=== PATIENT | female | born 1955 | race Two or more races ===

== ENCOUNTER 2025-01-12 08:46 | Outpatient (AMB) | payer MEDICARE, MEDICAID, SELFPAY ==
--- NOTE | 2025-01-12 09:13 | ORTHONT_ITS ---
Vital signs 01/12/25 09:14 Height 1.45 m Height Method Stated Weight 72.291 kg Weight Measurement Method Standing Scale BMI 34.4 BP 163/95 H Blood Pressure Source Automatic Cuff Blood Pressure Location Left Upper Arm Position Sitting Respiration 19 Pulse 77 Pulse Source Monitor Temp 96.8 F Temp Source Temporal Artery Scan Pulse Oximetry (%) 97 Oxygen Delivery Method Room Air Med/Allergies Allergies & Medications Allergies No Known Allergies Allergy (Verified 01/12/25 09:14) Medication Reconciliation celecoxib 200 mg capsule 200 mg PO QDAY 01/12/25 [History Confirmed 01/12/25] hydroxychloroquine 200 mg tablet 200 mg PO QDAY 01/12/25 [History Confirmed 01/12/25] meloxicam 7.5 mg tablet 7.5 mg PO QDAY #45 tabs 01/12/25 [Rx] Exam Exam Patient is in no acute distress and is cooperative with the examination today. Breathing is nonlabored. In no respiratory distress. Bilateral extremities were evaluated and demonstrates sensation intact to light touch. Palpable pedal pulses are present. No significant edema is present. Bilateral hips were examined. The patient has no pain with log roll of the hips. Internal rotation to 30 degrees and external rotation to 30 degrees is painless. Negative FADIR. The left knee was examined. The left knee is in varus alignment. Range of motion from 0-115 degrees. Knee is stable to varus and valgus as well as AP translation with <5mm. Patient has a negative McMurrays. There is no pain with patellofemoral compression and no crepitus noted. The knee is tender to palpation medially. The right knee was also examined. The right knee is in varus alignment. Range of motion from 0-120 degrees. Knee is stable to varus and valgus as well as AP translation with <5mm. Patient has a negative McMurrays. There is no pain with patellofemoral compression and no crepitus noted. The knee is tender to palpation medially. X-rays demonstrate varus deformity. X-rays are from [facility] and are nonweightbearing. Will get new x-rays Assessment and Plan Problem List (1) Degenerative arthritis of knee, bilateral: Status: Acute Plan: Patient is a 70-year-old female With bilateral knee pain and bilateral knee arthritis. We discussed nonoperative and operative options. We will start with getting new weightbearing x-rays. She would like to try different anti- inflammatory and we will do bilateral knee injections today. We discussed the natural history of arthritis in great detail today Recommend knee cortisone injections as patient would like to proceed with conservative treatment at this time. The risks and benefits of the procedure were reviewed with the patient and patient gave verbal consent to continue with the procedure. Procedure: performed by Dr. Diez Using sterile technique the Bilateral knees were thoroughly prepped with alcohol, and approximately 1 cc of Kenalog 40 mg/mL and 4 cc of 1% lidocaine was injected into each knee without resistance into the medial tibial femoral joint space. The patient tolerated the procedure. Advanced Care Planning Discussion Advance care planning discussed with:: patient and child Office Procedures GNS Level of Care Nursing/Assessment Patient Status: Initial/New Patient Nursing Assessment/Reassesment: Medication Reconciliation, Update PMH in EMR and Vital Signs Coordination of Care: Complex Care and Chronic Disease 1-5, Education Complex Pt/Fam, Consent,records obtained, informed consent, 1 Ins Authorization, Lab and Imaging orders, Results/Orders obtained and Staff clarify orders New Patient Charge New Patient Point Assignment: 1124 New Patient Point Charge: WAREHOUSING TECHNICIAN Level 4 ([id number]) Surgical Proc/IM SQ injection Major Surgical Procedure: Yes (BILATERAL KNEE INJECTION) Medication Given Medication Given Medication Given: Yes Documented Dose Given: 8 Route: Infiitration Medication Given Medication Given Medication Given: Yes Documented Dose Given: 2 Route: Infiitration Office Meds Xylocaine 10 mg/mL (1 %) injection solution Performing Provider: James Diez MD Performing Location: [facility] Administered by: James Diez MD on 01/12/25 09:34 Dose Route Admin Location Dispensed Lot Number Expiration Date [facility] Mulling Machine Operator 40 mL Infiltration 40 mL [id number] 04/23/28 89499-681-56 [facility] triamcinolone acetonide 40 mg/mL suspension for injection Performing Provider: James Diez MD Performing Location: [facility] Administered by: James Diez MD on 01/12/25 09:34 Dose Route Admin Location Dispensed Lot Number Expiration Date [facility] [employer] Machine Operator 80 mg Infiltration 2 mL [id number] 08/23/26 4846-8656-88 [employer] [place] Intake Visit Data Collection New Patient or Established: New Patient (never been to [facility]) Reason for Visit:: LEFT KNEE PAIN Seen by Clinical Staff ONLY (RN/MA): No Air Operations Manager Required: Yes PCP or OBGYN visit in last 3 months: Yes Hx Now: No Do You Feel Safe at Home: Yes Authorities Contacted: N/A Questionairres Past Medical History Past Medical History Have you ever been diagnosed with any of the following: Respiratory Problems Smoking: No Smoking Exposure: No Subjective Visit Visit for: new patient and knee (LEFT) Immunization / Flu Flu Vaccine in the Last 12 Months: Yes Flu Vaccine Exclusion Criteria: Already Received History of Present Illness Chief complaint: Bilateral knee pain Date of injury / onset of symptoms: 10/2023 Shweta is a pleasant 70-year-old female with bilateral knee pain and bilateral knee arthritis. The pain has been ongoing for quite a while. She reports the left knee hurts More than the right. She has never had any injections in the past. She is on Celebrex and Tylenol. Pain Pain level (0-10): 10 Pain duration: WITH STANDING Pain location: anterior Pain quality: dull and aching Pain timing: night, increases with activity and stairs Associated signs & symptoms: weakness and stiffness Ambulatory data Ambulatory device: cane Treatments Number of previous injections: 0 Improvement with previous injections: No Number of Physical Therapy sessions: 0 Improvement with PT: No Improvement with NSAIDS: no Review of Systems Review of Systems: All systems negative unless otherwise noted in HPI.
[2025-01-12 09:14] VITALS: BP 163/95; PULSE 77; RESP 19; TEMP 36; O2SAT 97; BMI 34.4
--- NOTE | 2025-01-12 09:28 | XR_ITS ---
Examination: Bilateral knees AP single view Bilateral standing PA knees flexion 2 views Bilateral lateral knees standing 2 views Bilateral axial knees single view IMPRESSION: Bilateral AP knees standing single view Bilateral PA knees flexion standing 2 views Bilateral lateral knees standing 2 views Bilateral axial knees single view total 6 views Exam date and time: 13/11/2024 0951 hours INDICATIONS: Bilateral knee pain one year. FINDINGS: Prominent osteopenia Severe narrowing, [id number] medial joint spaces Advanced bilateral osteoarthritis patellofemoral joints IMPRESSION: Severe narrowing, [id number], medial joint spaces Bilateral advanced osteoarthritis patellofemoral joints
== END 2025-01-12 09:51 | disposition home or self-care (01) ==
PROVIDERS: PCP Family Medicine; Referring Provider Family Medicine; Supervising Provider Orthopaedic Surgery Adult Reconstructive Orthopaedic Surgery; Visit Provider Orthopaedic Surgery Adult Reconstructive Orthopaedic Surgery
DX: M17.0 Bilateral primary osteoarthritis of knee (principal)
CPT/HCPCS: 20610; 73564; 99204; J3301; J3490; G0463

== ENCOUNTER 2025-04-12 08:29 | Outpatient (AMB) | payer MEDICARE, MEDICAID, SELFPAY ==
[2025-04-12 08:48] VITALS: BP 177/98; PULSE 65; RESP 19; TEMP 36.6; O2SAT 96; BMI 34.1
--- NOTE | 2025-04-12 08:48 | ORTHONT_ITS ---
Vital signs 04/12/25 08:48 Height 1.45 m Height Method Stated Weight 71.781 kg Weight Measurement Method Standing Scale BMI 34.1 BP 177/98 H Blood Pressure Source Automatic Cuff Blood Pressure Location Left Upper Arm Position Sitting Respiration 19 Pulse 65 Pulse Source Monitor Temp 97.8 F Temp Source Temporal Artery Scan Pulse Oximetry (%) 96 Oxygen Delivery Method Room Air Med/Allergies Allergies & Medications Allergies No Known Allergies Allergy (Verified 04/12/25 08:48) Medication Reconciliation celecoxib 200 mg capsule 200 mg PO QDAY 01/12/25 [History Confirmed 04/12/25] hydroxychloroquine 200 mg tablet 200 mg PO QDAY 01/12/25 [History Confirmed 04/12/25] meloxicam 7.5 mg tablet 7.5 mg PO QDAY #45 tabs 01/12/25 [Rx Confirmed 04/12/25] Exam Exam Patient is in no acute distress and is cooperative with the examination today. Breathing is nonlabored. In no respiratory distress. Bilateral extremities were evaluated and demonstrates sensation intact to light touch. Palpable pedal pulses are present. No significant edema is present. Bilateral hips were examined. The patient has no pain with log roll of the hips. Internal rotation to 30 degrees and external rotation to 30 degrees is painless. Negative FADIR. The left knee was examined. The left knee is in varus alignment. Range of motion from 0-115 degrees. Knee is stable to varus and valgus as well as AP translation with <5mm. Patient has a negative McMurrays. There is no pain with patellofemoral compression and no crepitus noted. The knee is tender to palpation medially. The right knee was also examined. The right knee is in varus alignment. Range of motion from 0-120 degrees. Knee is stable to varus and valgus as well as AP translation with <5mm. Patient has a negative McMurrays. There is no pain with patellofemoral compression and no crepitus noted. The knee is tender to palpation medially. Xrays demonstrate bilateral joint space narrowing medially with complete obliteration of the joint space and varus deformity Assessment and Plan Problem List (1) Degenerative arthritis of knee, bilateral: Status: Acute Plan: Patient is a 70-year-old female With bilateral knee pain and bilateral knee arthritis. We discussed nonoperative and operative options. She has faileed conservative treatment including 2 injections, celebrex, and tylenol with minimal relief. We thus considered total knee replacement as a reasonable option on the left. The nature and purpose of the total knee replacement, alternative method(s) of treatment, the material risks involved, and the possibility of complications were fully explained to the patient. The patient does NOT have any of the following contraindications to TKA: - Active infection of the knee joint, OR - Active systemic bacteremia, OR - Active skin infection or open wound at surgical site, OR - Neuropathic arthritis, OR - Severe, rapidly progressive neurological disease, OR - Severe medical condition that makes risks of surgery outweigh the potential benefit The patient was told the most common risks and complications associated with a total knee replacement include, but are not limited to: blood clots in the leg, fatal pulmonary embolism, dislocation of the prosthesis, intraoperative and postoperative fractures of the femur or tibia, infection, failure of the prosthesis or grafting materials, complications from anesthesia, reactions to blood transfusions, postoperative leg length inequality, instability of the knee replacement, nerve damage or injury, vascular injury, delayed wound healing, infection, other injury or even . In addition, there are risks associated with anesthesia given during this operation. Also, the patient was told that after undergoing a total knee replacement there may still be persistent pain or disability. The patient was informed that the success of this operation in part depends upon the mechanical devices which are going to be implanted and that these devices can fail or malfunction, and may need to be repaired or replaced and there are no guarantees as to the longevity of this device or its parts and that it or its parts could fail prematurely. The patient was also notified that during the course of surgery, there may be a need to use bone graft from donors, and that any bone graft used will be carefully screened for communicable diseases, including AIDS, hepatitis, David-Creutzfeldt, or other diseases, but despite the screening procedures, there is a small chance that they could contract one of these diseases. Finally, the patient was asked to follow completely and fully with all advice and recommended treatments, and that recovery and ultimate outcome are affected by their compliance with recommended treatment. We discussed the risks, benefits and treatment alternatives, and the patient is interested in proceeding with surgery. We will try to set this up as expeditiously as possible. Advanced Care Planning Discussion Advance care planning discussed with:: patient and child Office Procedures GNS Level of Care Nursing/Assessment Patient Status: Established Patient Nursing Assessment/Reassesment: Medication Reconciliation, Update PMH in EMR and Vital Signs Coordination of Care: Complex Care and Chronic Disease 1-5, Education Complex Pt/Fam, Consent,records obtained, informed consent, Results/Orders obtained and Staff clarify orders Special Needs: Language special needs Established Patient Charge Established Patient Point Assignment: 95 Established Patient Point Charge: EP Level 3 (80-115) MA Intake Visit Data Collection New Patient or Established: Established Patient (seen at [facility] within 3 years) Reason for Visit:: 3MTH BL INJ F/U XRAYS Load Haul Dump Operator Required: No PCP or OBGYN visit in last 3 months: Yes Hx Now: No Do You Feel Safe at Home: Yes Authorities Contacted: N/A Questionairres Past Medical History Past Medical History Have you ever been diagnosed with any of the following: Respiratory Problems Smoking: No Smoking Exposure: No Subjective Visit Visit for: follow up visit and knee Immunization / Flu Flu Vaccine in the Last 12 Months: No Flu Vaccine Exclusion Criteria: No Exclusion Criteria and Already Received History of Present Illness Chief complaint: Bilateral knee pain Date of injury / onset of symptoms: 10/2023 Shweta is a pleasant 70-year-old female with bilateral knee pain and bilateral knee arthritis. The pain has been ongoing for quite a while. She reports the left knee hurts More than the right. She has never had any injections in the past. She is on Celebrex and Tylenol. Pain Pain level (0-10): 3 Pain duration: ON AND OFF Pain location: anterior Pain quality: dull and aching Pain timing: night, increases with activity and stairs Associated signs & symptoms: weakness, stiffness and none Ambulatory data Ambulatory device: cane Treatments Number of previous injections: 0 Improvement with previous injections: No Number of Physical Therapy sessions: 0 Improvement with PT: No Improvement with NSAIDS: no Review of Systems Review of Systems: All systems negative unless otherwise noted in HPI.
== END 2025-04-12 08:59 | disposition home or self-care (01) ==
LOC: HODSRG 08:29
PROVIDERS: PCP Family Medicine; Referring Provider Family Medicine; Supervising Provider Orthopaedic Surgery Adult Reconstructive Orthopaedic Surgery; Visit Provider Orthopaedic Surgery Adult Reconstructive Orthopaedic Surgery
DX: M17.0 Bilateral primary osteoarthritis of knee (principal); M25.562 Pain in left knee; M25.561 Pain in right knee
CPT/HCPCS: 99213; G0463

== ENCOUNTER 2025-05-17 09:00 | Outpatient (AMB) | payer MEDICARE, MEDICAID, SELFPAY ==
--- NOTE | 2025-05-17 09:15 | ORTHONT_ITS ---
Vital signs 05/17/25 09:16 Height 1.45 m Height Method Stated Weight 70.76 kg Weight Measurement Method Standing Scale BMI 33.6 BP 186/93 H Blood Pressure Source Automatic Cuff Blood Pressure Location Left Upper Arm Position Sitting Respiration 19 Pulse 68 Pulse Source Monitor Temp 97.8 F Temp Source Temporal Artery Scan Pulse Oximetry (%) 99 Oxygen Delivery Method Room Air Med/Allergies Allergies & Medications Allergies No Known Allergies Allergy (Verified 05/17/25 09:17) Medication Reconciliation celecoxib 200 mg capsule 200 mg PO QDAY 01/12/25 [History Confirmed 05/17/25] hydroxychloroquine 200 mg tablet 200 mg PO QDAY 01/12/25 [History Confirmed 05/17/25] meloxicam 7.5 mg tablet 7.5 mg PO QDAY #45 tabs 01/12/25 [Rx Confirmed 05/17/25] Exam Exam Patient is in no acute distress and is cooperative with the examination today. Breathing is nonlabored. In no respiratory distress. Bilateral extremities were evaluated and demonstrates sensation intact to light touch. Palpable pedal pulses are present. No significant edema is present. Bilateral hips were examined. The patient has no pain with log roll of the hips. Internal rotation to 30 degrees and external rotation to 30 degrees is painless. Negative FADIR. The left knee was examined. The left knee is in varus alignment. Range of motion from 0-115 degrees. Knee is stable to varus and valgus as well as AP translation with <5mm. Patient has a negative McMurrays. There is no pain with patellofemoral compression and no crepitus noted. The knee is tender to palpation medially. The right knee was also examined. The right knee is in varus alignment. Range of motion from 0-120 degrees. Knee is stable to varus and valgus as well as AP translation with <5mm. Patient has a negative McMurrays. There is no pain with patellofemoral compression and no crepitus noted. The knee is tender to palpation medially. Xrays demonstrate bilateral joint space narrowing medially with complete obliteration of the joint space and varus deformity Assessment and Plan Problem List (1) Degenerative arthritis of knee, bilateral: Status: Acute Plan: Patient is a 70-year-old female With bilateral knee pain and bilateral knee arthritis. We discussed nonoperative and operative options. She has faileed conservative treatment including 2 injections, celebrex, and tylenol with minimal relief. We thus considered total knee replacement as a reasonable option on the left. The nature and purpose of the total knee replacement, alternative method(s) of treatment, the material risks involved, and the possibility of complications were fully explained to the patient. The patient does NOT have any of the following contraindications to TKA: - Active infection of the knee joint, OR - Active systemic bacteremia, OR - Active skin infection or open wound at surgical site, OR - Neuropathic arthritis, OR - Severe, rapidly progressive neurological disease, OR - Severe medical condition that makes risks of surgery outweigh the potential benefit The patient was told the most common risks and complications associated with a total knee replacement include, but are not limited to: blood clots in the leg, fatal pulmonary embolism, dislocation of the prosthesis, intraoperative and postoperative fractures of the femur or tibia, infection, failure of the prosthesis or grafting materials, complications from anesthesia, reactions to blood transfusions, postoperative leg length inequality, instability of the knee replacement, nerve damage or injury, vascular injury, delayed wound healing, infection, other injury or even . In addition, there are risks associated with anesthesia given during this operation. Also, the patient was told that after undergoing a total knee replacement there may still be persistent pain or disability. The patient was informed that the success of this operation in part depends upon the mechanical devices which are going to be implanted and that these devices can fail or malfunction, and may need to be repaired or replaced and there are no guarantees as to the longevity of this device or its parts and that it or its parts could fail prematurely. The patient was also notified that during the course of surgery, there may be a need to use bone graft from donors, and that any bone graft used will be carefully screened for communicable diseases, including AIDS, hepatitis, David-Creutzfeldt, or other diseases, but despite the screening procedures, there is a small chance that they could contract one of these diseases. Finally, the patient was asked to follow completely and fully with all advice and recommended treatments, and that recovery and ultimate outcome are affected by their compliance with recommended treatment. We discussed the risks, benefits and treatment alternatives, and the patient is interested in proceeding with surgery. We will try to set this up as expeditiously as possible. Advanced Care Planning Discussion Advance care planning discussed with:: patient and child Office Procedures GNS Level of Care Nursing/Assessment Patient Status: Established Patient Nursing Assessment/Reassesment: Medication Reconciliation, Update PMH in EMR and Vital Signs Coordination of Care: Complex Care and Chronic Disease 1-5, Education Complex Pt/Fam, Consent,records obtained, informed consent, Results/Orders obtained and Staff clarify orders Established Patient Charge Established Patient Point Assignment: 95 Established Patient Point Charge: EP Level 3 (80-115) MA Intake Visit Data Collection New Patient or Established: Established Patient (seen at [facility] within 3 years) Reason for Visit:: FOLLOW UP MED/CARDIAC CLEARANCE Seen by Clinical Staff ONLY (RN/MA): No Mobile Homes Repairer Required: No PCP or OBGYN visit in last 3 months: Yes Hx Now: No Do You Feel Safe at Home: Yes Authorities Contacted: N/A Questionairres Past Medical History Past Medical History Have you ever been diagnosed with any of the following: Respiratory Problems Smoking: No Smoking Exposure: No Subjective Visit Visit for: follow up visit and knee Immunization / Flu Flu Vaccine in the Last 12 Months: No Flu Vaccine Exclusion Criteria: No Exclusion Criteria and Already Received History of Present Illness Chief complaint: Bilateral knee pain Date of injury / onset of symptoms: 10/2023 Shweta is a pleasant 70-year-old female with bilateral knee pain and bilateral knee arthritis. The pain has been ongoing for quite a while. She reports the left knee hurts More than the right. She has never had any injections in the past. She is on Celebrex and Tylenol. Pain Pain level (0-10): 9 Pain duration: ON AND OFF Pain location: anterior Pain quality: dull and aching Pain timing: night, increases with activity and stairs Associated signs & symptoms: weakness, stiffness and none Ambulatory data Ambulatory device: cane Treatments Number of previous injections: 0 Improvement with previous injections: No Number of Physical Therapy sessions: 0 Improvement with PT: No Improvement with NSAIDS: no Review of Systems Review of Systems: All systems negative unless otherwise noted in HPI.
[2025-05-17 09:16] VITALS: BP 186/93; PULSE 68; RESP 19; TEMP 36.6; O2SAT 99; BMI 33.6
== END 2025-05-17 09:32 | disposition home or self-care (01) ==
LOC: HODSRG 09:00
PROVIDERS: PCP Family Medicine; Referring Provider Family Medicine; Supervising Provider Orthopaedic Surgery Adult Reconstructive Orthopaedic Surgery; Visit Provider Orthopaedic Surgery Adult Reconstructive Orthopaedic Surgery
DX: M17.0 Bilateral primary osteoarthritis of knee (principal); M25.562 Pain in left knee; M25.561 Pain in right knee
CPT/HCPCS: 99213; G0463

== ENCOUNTER → 2025-05-22 | Outpatient (CLI) | payer MEDICARE, OTHER, SELFPAY ==
--- NOTE | 2025-05-22 13:00 | XR_ITS ---
Examination: CT left lower extremity, without contrast. 2-D sagittal reconstructions. 2-D coronal reconstructions. 3-D reconstructions. Date and time of exam:May 22, 2025 1329 hours INDICATIONS: Diagnosis left knee unilateral osteoarthritis, left knee pain one year CTDI: vol (mGy):10.8 DLP: (mGycm):706 Technique: Multiple 1.25 mm axial sections of the left lower extremity without intravenous contrast have been obtained. 2-D sagittal and coronal reconstructions have been obtained. 3-D reconstructions have been obtained. Low dose protocols were performed. One or more of the following dose reduction techniques were used; automated exposure control, adjustment of the mA and/or KV according to patient size, use of iterative reconstruction technique. Findings: Significant osteopenia Mild to moderate narrowing left hip joint No left hip fracture or dislocation, no avascular necrosis Severe narrowing [id number] medial joint space left knee Advanced osteoarthritis lateral and patellofemoral joint No fractures IMPRESSION: Advanced tricompartment osteoarthritis left knee including severe narrowing [id number] medial joint space
== END | disposition home or self-care (01) ==
LOC: CCTX 13:16
PROVIDERS: Referring Provider Orthopaedic Surgery Adult Reconstructive Orthopaedic Surgery; Visit Provider Orthopaedic Surgery Adult Reconstructive Orthopaedic Surgery
DX: M17.12 Unilateral primary osteoarthritis, left knee (principal); M25.852 Other specified joint disorders, left hip
CPT/HCPCS: 73700

== ENCOUNTER 2025-05-31 06:40 | Day surgery (SDC) | payer MEDICARE, OTHER, SELFPAY ==
[2025-05-30 06:27] VITALS: BMI 35.1
[2025-05-30 07:36] LABS: Basophils # (Auto) 0.0 Thou/mm3 (0.0-0.2); Basophils % (Auto) 0 % (0-2.5); Eosinophils # (Auto) 0.0 Thou/mm3 (0.0-0.5); Eosinophils % (Auto) 0 % (0-10); Hematocrit 36.0 % (36.0-46.0); Hemoglobin 11.7 g/dL (12.0-16.0); Immature Granulocytes Auto 0.01 Thou/mm3 (0.00-0.00); Lymphocytes # (Auto) 1.7 Thou/mm3 (1.0-4.8); Lymphocytes % (Auto) 28 % (10-50); Mean Corpuscular HGB Conc 32.5 g/dl (31.0-37.0); Mean Corpuscular Hemoglobin 28.1 pg (25.0-35.0); Mean Corpuscular Volume 86 fL (80-100); Monocytes # (Auto) 0.6 Thou/mm3 (0.0-0.8); Monocytes % (Auto) 9 % (0-12); Neutrophils # (Auto) 3.7 Thou/mm3 (1.8-7.7); Neutrophils % (Auto) 63 % (37-80); Nucleated Red Blood Cell # 0.00 Thou/mm3 (0.00-0.00); Nucleated Red Blood Cell % 0 /100 WBC (0); Platelet Count 219 Thou/mm3 (140-440); RDW Standard Deviation 43.1 fL (36.4-46.3); Red Blood Count 4.17 Miln/mm3 (4.00-5.20); White Blood Count 6.0 Thou/mm3 (3.6-11.0)
[2025-05-30 07:50] LABS: Alanine Aminotransferase < 7 U/L (10-49); Albumin, Serum 4.4 gm/dL (3.4-4.8); Albumin/Globulin Ratio 1.3 (1.2-2.2); Alkaline Phosphatase 109 U/L (46-116); Anion Gap 7 (7-16); Aspartate Amino Transferase 28 U/L (0-34); BUN/Creatinine Ratio 17 Ratio (12-20); Bilirubin,Total 0.5 mg/dL (0.3-1.2); Blood Urea Nitrogen 15 mg/dL (9-23); Calcium 9.7 mg/dL (8.3-10.6); Calcium (Corrected) 9.7 mg/dL (8.5-10.1); Carbon Dioxide 25.8 mMol/L (20.0-31.0); Chloride 110 mMol/L (98-107); Creatinine (Component) 0.9 mg/dL (0.6-1.3); Estimated Creatinine Clearance 46.7 mL/min (>60); Globulin 3.3 gm/dL (2.3-3.5); Glucose 93 mg/dL (74-106); Osmolality,Calculated 285 (275-295); Potassium 3.9 mMol/L (3.4-5.1); Sodium 143 mMol/L (136-145); Total Protein 7.7 gm/dL (5.7-8.2); eGFR > 60 See Note
[2025-05-30 07:55] LABS: INR 1.0 (0.9-1.3); Partial Thromboplastin Time 28.8 Seconds (22.0-36.0); Prothrombin Time 10.8 Seconds (9.0-12.2)
[2025-05-31] VITALS (10 sets, daily range): BP systolic 135–183; BP diastolic 76–93; PULSE 73–90; RESP 13–19; TEMP 36.2–37.5; O2SAT 96–100; BMI 33.6
--- NOTE | 2025-05-31 07:16 | SUR.PREOP ---
pt blood pressure 224/108, informed Dr Diez and Dr Horne, pt states she is nervous. Will repeat blood pressure per Dr Horne.
[2025-05-31] MEDS: RINGERS LACTATED 1000 ML 1,000 ML 20 ML IV (07:54)
[2025-05-31] MEDS: PREGABALIN 75 MG CAPSULE PO (07:54)
[2025-05-31] MEDS: ACETAMINOPHEN 325 MG TABLET 650 MG PO (07:54)
[2025-05-31] MEDS: MELOXICAM 7.5 MG TABLET PO (07:54)
--- NOTE | 2025-05-31 12:12 | PD.SUROPNT ---
Date of Procedure 05/31/25 Pre Op Diagnosis left knee osteoarthritis Post Op Diagnosis left knee osteoarthritis Procedure left total knee replacement anthony Findings full thickness cartilage loss and osteophytes Procedure Description Indication: The patient is a 70 year old who has a long history of left knee pain. X-rays show degenerative arthritis involving the knee. Over the past several years the patient has had increasing pain, progressive limitation in function. He has failed conservative measures including activity modification, physical therapy, injections, anti-inflammatories, and assistive devices. After a lengthy discussion of the risks and benefits, the patient presents now for total knee replacement. The nature and purpose of the total knee replacement, alternative method(s) of treatment, the material risks involved, and the possibility of complications were fully explained to the patient. The patient was told the most common risks and complications associated with a total knee replacement include, but are not limited to blood clots in the leg, fatal pulmonary embolism, dislocation of the prosthesis, intraoperative and postoperative fractures of the femur or tibia, infection, failure of the prosthesis or grafting materials, complications from anesthesia, reactions to blood transfusions, postoperative leg length inequality, instability of the knee replacement, nerve damage or injury, vascular injury, delayed wound healing, infections, other injury or even . In addition, there are risks associated with anesthesia given during this operation, temporary or permanent numbness on the skin lateral to the incision can be a complication unique to total knee surgery, and kneeling can be painful after knee replacement surgery. Also, the patient was told that after undergoing a total knee replacement there may still be pain or disability. We discussed with the patient that we will be using a robot-assisted technology. We discussed that there is a possibility of converting to manual instrumentation. The patient was informed that the success of this operation in part depends upon the mechanical devices which are going to be implanted and that these devices can fail or malfunction, and may need to be repaired or replaced and there are no guarantees as to the longevity of this device or its part and that it or its parts could fail prematurely. Finally, the patient was asked to follow completely and fully with all advice and recommended treatments, and that recovery and ultimate outcome are affected by their compliance with recommended treatment. Surgical technique: Patient was marked and consented in the pre-operative area. The patient was brought to the operating room and placed on the operating table in a supine position. Prior to positioning, a timeout procedure was performed between the surgeon, the anesthesiologist, and the nursing staff where the patient and the operative side were identified and confirmed. After adequate general anesthetic was obtained, the left lower extremity was prepped and draped in the usual sterile fashion. A weight based dose of Cefazolin were administered within 1 hour prior to incision. The robot was preregistered and calirated before the incision. The extremity was exsanguinated with an esmarch badge and tourniquet inflated to 250mmHg. A midline incision was made. A median parapatellar arthrotomy was made. The patella was subluxed laterally. A medial release was performed to expose the medial tibia. His femoral and tibial pins were placed through an intra incisional manner for both cases. Every effort was made to ensure that the distalmost aspect of the pin was hung in the second cortex. The arrays were then tightened several times to ensure that it was fixed for the remainder of the case. Both femoral and tibial checkpoints were then placed. We then went through the registration process of the bone. We then assessed the knee deformity and attempted to correct it. We also used the robot to aid in judging laxity in both extension and flexion. Final based on laxity and alignment we changed the preoperative assessment to obtain proper proper implant positioning and to correct deformity. Attention was then placed to the tibia. We made a tibial cut using the robot ensuring that both the MCL and the patella tendon were protected with retractors. We then went to the femur and made the posterior cut followed by the anterior cut and the anterior chamfer. The bone was then removed and we made a distal femur cut and a posterior chamfer cut. We verified all cuts. A trial reduction was performed with a size 2 femoral component and a size 2 keeled tibial component. The patella tracked centrally, and no lateral retinacular release was necessary. The trial implants were removed. The arrays, pins, and checkpoints were all removed. We performed a verification that all pins were removed. The cut bone surfaces were lavaged. A size 2 left femoral component, a size 2 keeled tibial component were impacted into position. The knee was felt to be well balanced in the sagittal and coronal plane. The final 2x11 mm cruciate-substituting articular insert was impacted into the tibial tray. The knee was brought out to full extension, flexed up to 120 degrees. It was stable to varus and valgus stress and appropriately balanced in flexion and extension. The wounds were copiously irrigated following deflation of tourniquet. The medial retinaculum was reapproximated with #1 vicryl and quill. The subcutaneous tissues were closed with 0 and 2-0 interrupted Vicryl. The skin was closed with 3-0 Monofilament V loc suture. A sterile dressing was applied. The patient was transferred to a bed and brought to recovery in stable condition. The patient tolerated the procedure well. There were no intraoperative complications. Sponge and needle counts were correct times 2. As the attending surgeon, Jayce jung I was present and performed the entire operation. Grafts/Implants Size 2 CR Femur Size 2 Tibia 11mm poly CS Anesthesia spinal Implants lisbet Pathology / specimen None Pathology comment: none Estimated Blood Loss 150 Condition Stable Disposition same day Surgeon James Diez MD Surgical Staff Operation Date: 05/31/25 10:45 Case Staff Anesthesiologist: Shelton Horne RNwinding inspector and tester: Irina Brian
--- NOTE | 2025-05-31 12:14 | XR_ITS ---
Examination: Left knee 2 views TECHNIQUE: AP lateral left knee 2 views Date and time: May 31, 2025 1324 hours INDICATIONS: Postop knee arthroplasty IMPRESSION: Total left knee arthroplasty. Satisfactory alignment. No acute fracture. IMPRESSION: Total left knee arthroplasty with satisfactory alignment.
--- NOTE | 2025-05-31 12:38 | SUR.PHASEI ---
1238 Patient arrived to recovery resting comfortably in [facility] [place], awake and talking with staff, breathing unlabored, vital signs stable, denies pain, dressing intact to left knee; prineo, telfa, abd, webril, joe wraps, no bleeding noted, denies nausea, post spinal anesthesia assessment via ice; patient has dermatome sensation at L1-groin, will continue to monitor, patient has good circulation to left lower extremity; skin color normal for patient and warm to touch, bilateral dorsalis pedis pulses present when palpated, report received from Dr. Horne and Aylin RODRIGUEZ
--- NOTE | 2025-05-31 13:39 | SUR.PHASEII ---
post spinal anesthesia anesthesia complete patient has dermatome sensation at s2-perineum
--- NOTE | 2025-05-31 14:21 | SUR.PHASEII ---
1421 Patient cleared by physical therapy to proceed with discharge, patient voided in the restroom during physical therapy
--- NOTE | 2025-05-31 14:37 | SUR.PHASEII ---
1437 patient meets discharge criteria from recovery, awake and alert, breathing unlabored, vital signs stable, denies pain, voided in the restroom prior to discharge, assisted with dressing into her clothing by daughter, dressing intact; no bleeding noted, patient signed limited proficiency statement for her daughter to translate Macedonian to her, discharge instructions given to patient and patients daughter, daughter signed discharge instructions. Patient given all her belongings prior to discharge, transported via wheelchair and left in a private vehicle.
--- NOTE | 2025-06-04 12:57 | PD.ANESPROG ---
Documentation for date of: 06/04/25 POST ANESTHESIA NOTE: Patient had spinal anesthesia and L adductor canal block for L TKA on 05/31/25. I called her number for follow up but no answer. Shelton Horne MD Anesthesia Progress Note Progress Note Most recent Vital Signs: Last Vital Signs Temp 97.5 F 05/31/25 14:08 Pulse 73 05/31/25 14:08 Resp 14 05/31/25 14:08 BP 147/89 H 05/31/25 14:08 Pulse Ox 98 05/31/25 14:08
== END 2025-05-31 14:37 | disposition home or self-care (01) ==
PROVIDERS: Anesthesiology; PCP Family Medicine; Referring Provider Orthopaedic Surgery Adult Reconstructive Orthopaedic Surgery; Visit Provider Orthopaedic Surgery Adult Reconstructive Orthopaedic Surgery
PROC: (CPT 27447; principal; 2025-05-31 10:30)
DX: M17.12 Unilateral primary osteoarthritis, left knee (principal); M25.762 Osteophyte, left knee
CPT/HCPCS: 27447; 20985; 36415; 73560; 80053; 85025; 85610; 85730; 97162; A4217; C1713; C1776; J0360; J0690; J1100; J2250; J2704; J2795; J3010; J3490; J7120; J7999; A4648; A4649; A9270

== ENCOUNTER 2025-06-15 07:54 | Outpatient (AMB) | payer MEDICARE, OTHER, SELFPAY ==
[2025-06-15 08:05] VITALS: BP 147/79; PULSE 99; RESP 20; TEMP 36.1; O2SAT 95; BMI 32.8
--- NOTE | 2025-06-15 08:05 | PD.ORTHCLVIS ---
Vital signs 06/15/25 08:05 Height 1.45 m Height Method Measured Weight 69.088 kg Weight Measurement Method Standing Scale BMI 32.8 BP 147/79 H Blood Pressure Source Automatic Cuff Blood Pressure Location Left Upper Arm Position Sitting Respiration 20 Pulse 99 Pulse Source Monitor Temp 96.9 F Temp Source Temporal Artery Scan Pulse Oximetry (%) 95 Oxygen Delivery Method Room Air Med/Allergies Allergies & Medications Allergies No Known Allergies Allergy (Verified 06/15/25 08:06) Medication Reconciliation acetaminophen 500 mg tablet (Acetaminophen Extra Strength) 1,000 mg (2 x 500 mg) PO Q6H PRN pain #90 tabs 05/31/25 [Rx Confirmed 06/15/25] aspirin 81 mg tablet,delayed release 81 mg PO BID #60 tabs 05/31/25 [Rx Confirmed 06/15/25] doxycycline hyclate 100 mg tablet 100 mg PO BID #14 tabs 05/31/25 [Rx Confirmed 06/15/25] gabapentin 300 mg capsule 300 mg PO .qhs #30 caps 05/31/25 [Rx Confirmed 06/15/25] sennosides 8.6 mg-docusate sodium 50 mg tablet (Senna-S) 1 tab-cap PO QDAY #30 tabs 05/31/25 [Rx Confirmed 06/15/25] oxycodone 5 mg tablet 5 mg PO Q6H PRN pain #28 tabs 06/11/25 [Rx Confirmed 06/15/25] Exam Exam Patient is in no acute distress and is cooperative with the examination today. Breathing is nonlabored. In no respiratory distress. Bilateral extremities were evaluated and demonstrates sensation intact to light touch. Palpable pedal pulses are present. No significant edema is present. Bilateral hips were examined. The patient has no pain with log roll of the hips. Internal rotation to 30 degrees and external rotation to 30 degrees is painless. Negative FADIR. Left knee incision is clean dry and intact Assessment and Plan Problem List (1) Degenerative arthritis of knee, bilateral: Status: Acute Plan: Patient is a 70-year-old female With bilateral knee pain and bilateral knee arthritis. She is doing well status post left total knee replacement. Will see her back in 4 weeks for routine follow-up. Will get x-rays at next visit. She should continue with her therapy On an outpatient basis Advanced Care Planning Discussion Advance care planning discussed with:: patient and child Office Procedures GNS Level of Care Nursing/Assessment Patient Status: Established Patient Nursing Assessment/Reassesment: Medication Reconciliation, Orthostatic Vitals, Update PMH in EMR and Vital Signs Coordination of Care: Complex Care and Chronic Disease 1-5, Education Complex Pt/Fam, Consent,records obtained, informed consent, Lab and Imaging orders, Results/Orders obtained and Staff clarify orders Special Needs: Language special needs Established Patient Charge Established Patient Point Assignment: 120 Established Patient Point Charge: EP Level 4 (120-155) MA Intake Visit Data Collection New Patient or Established: Established Patient (seen at [facility] within 3 years) Reason for Visit:: 2 WEEK F/U POST OP LEFT TKA Seen by Clinical Staff ONLY (RN/MA): No Stave Block Roller Required: Yes PCP or OBGYN visit in last 3 months: Yes Hx Now: No Do You Feel Safe at Home: Yes Authorities Contacted: N/A Questionairres Past Medical History Past Medical History Have you ever been diagnosed with any of the following: Neurological Problems Seizures: No Cardiology Problems Congestive Heart Failure: No Varicose Veins: Yes Respiratory Problems Chronic Obstructive Pulmonary Disease (COPD): No Pneumonia: Yes Smoking: No Smoking Exposure: No Stomache/Intestinal Problems Hepatitis: No Obesity: Yes Genital/Urinary Problems Renal Disease: No Reproductive Problems Breast Cancer: Yes (Left) Previous Pregnancies: Yes Musculoskeletal Problems Arthritis: Yes Endocrine Problems Diabetes Mellitus Type 1: No Diabetes Mellitus Type 2: No Other Problems Shingles: No Blood Transfusions: No Blood Transfusion Reaction: No Anesthesia Reactions: No Chemotherapy: Yes (2009) Radiation Therapy: Yes (2009) Chicken Pox: Yes Measles: Yes Mumps: Yes Cancer: Yes Subjective Visit Visit for: follow up visit, post op #1 and knee Immunization / Flu Flu Vaccine in the Last 12 Months: No Flu Vaccine Exclusion Criteria: No Exclusion Criteria and Already Received History of Present Illness Chief complaint: 2 WEEK POST OP LEFT TKA Date of injury / onset of symptoms: 10/2023 Shweta is a pleasant 70-year-old female with bilateral knee pain and bilateral knee arthritis. She is status post left total knee replacement and is doing well Personal History Red flag PMH: none BMI Counceling provided: Yes Pain Pain level (0-10): 5 Pain duration: ON AND OFF Pain location: anterior Pain quality: dull and aching Pain timing: night, increases with activity and stairs Associated signs & symptoms: weakness, stiffness and none Ambulatory data Ambulatory device: walker Treatments Number of previous injections: 0 Improvement with previous injections: No Number of Physical Therapy sessions: 0 Improvement with PT: No Improvement with NSAIDS: no Review of Systems Review of Systems: All systems negative unless otherwise noted in HPI.
== END 2025-06-15 08:27 | disposition home or self-care (01) ==
PROVIDERS: PCP Family Medicine; Referring Provider Family Medicine; Supervising Provider Orthopaedic Surgery Adult Reconstructive Orthopaedic Surgery; Visit Provider Orthopaedic Surgery Adult Reconstructive Orthopaedic Surgery
DX: M17.0 Bilateral primary osteoarthritis of knee (principal); M25.562 Pain in left knee; M25.561 Pain in right knee; E66.9 Obesity, unspecified; Z71.3 Dietary counseling and surveillance; Z68.32 Body mass index [BMI] 32.0-32.9, adult
CPT/HCPCS: 99214; G0463

== ENCOUNTER 2025-07-12 08:22 | Outpatient (AMB) | payer MEDICARE, MEDICAID, SELFPAY ==
--- NOTE | 2025-07-12 08:47 | PD.ORTHCLVIS ---
Vital signs 07/12/25 08:48 Height 1.45 m Height Method Stated Weight 69.598 kg Weight Measurement Method Standing Scale BMI 33.0 BP 142/84 H Blood Pressure Source Automatic Cuff Blood Pressure Location Left Upper Arm Position Sitting Respiration 18 Pulse 62 Pulse Source Monitor Temp 96.7 F L Temp Source Temporal Artery Scan Pulse Oximetry (%) 98 Oxygen Delivery Method Room Air Med/Allergies Allergies & Medications Allergies No Known Allergies Allergy (Verified 07/12/25 08:49) Medication Reconciliation acetaminophen 500 mg tablet (Acetaminophen Extra Strength) 1,000 mg (2 x 500 mg) PO Q6H PRN pain #90 tabs 05/31/25 [Rx Confirmed 07/12/25] aspirin 81 mg tablet,delayed release 81 mg PO BID #60 tabs 05/31/25 [Rx Confirmed 07/12/25] doxycycline hyclate 100 mg tablet 100 mg PO BID #14 tabs 05/31/25 [Rx Confirmed 07/12/25] gabapentin 300 mg capsule 300 mg PO .qhs #30 caps 05/31/25 [Rx Confirmed 07/12/25] sennosides 8.6 mg-docusate sodium 50 mg tablet (Senna-S) 1 tab-cap PO QDAY #30 tabs 05/31/25 [Rx Confirmed 07/12/25] oxycodone 5 mg tablet 5 mg PO Q6H PRN pain #28 tabs 06/11/25 [Rx Confirmed 07/12/25] meloxicam 7.5 mg tablet 7.5 mg PO QDAY #45 tabs 07/12/25 [Rx] Exam Exam Patient is in no acute distress and is cooperative with the examination today. Breathing is nonlabored. In no respiratory distress. Bilateral extremities were evaluated and demonstrates sensation intact to light touch. Palpable pedal pulses are present. No significant edema is present. Bilateral hips were examined. The patient has no pain with log roll of the hips. Internal rotation to 30 degrees and external rotation to 30 degrees is painless. Negative FADIR. Left knee incision is clean dry and intact Assessment and Plan Problem List (1) Degenerative arthritis of knee, bilateral: Status: Acute Plan: Patient is a 70-year-old female With bilateral knee pain and bilateral knee arthritis. She is doing well status post left total knee replacement. Will see her back in 6 weeks for routine follow-up. We dhillon ee her back for a motion check Advanced Care Planning Discussion Advance care planning discussed with:: patient and child Office Procedures GNS Level of Care Nursing/Assessment Patient Status: Established Patient Nursing Assessment/Reassesment: Medication Reconciliation, Update PMH in EMR and Vital Signs Coordination of Care: Complex Care and Chronic Disease 1-5, Education Complex Pt/Fam, Consent,records obtained, informed consent, Results/Orders obtained and Staff clarify orders Established Patient Charge Established Patient Point Assignment: 95 Established Patient Point Charge: EP Level 3 (80-115) MA Intake Visit Data Collection New Patient or Established: Established Patient (seen at [facility] [place] within 3 years) Reason for Visit:: 6 WEEK F/U POST OP LEFT TKA Seen by Clinical Staff ONLY (RN/MA): No Graining Operator Required: Yes PCP or OBGYN visit in last 3 months: Yes Hx Now: No Do You Feel Safe at Home: Yes Authorities Contacted: N/A Questionairres Past Medical History Past Medical History Have you ever been diagnosed with any of the following: Neurological Problems Seizures: No Cardiology Problems Congestive Heart Failure: No Varicose Veins: Yes Respiratory Problems Chronic Obstructive Pulmonary Disease (COPD): No Pneumonia: Yes Smoking: No Smoking Exposure: No Stomache/Intestinal Problems Hepatitis: No Obesity: Yes Genital/Urinary Problems Renal Disease: No Reproductive Problems Breast Cancer: Yes (Left) Previous Pregnancies: Yes Musculoskeletal Problems Arthritis: Yes Endocrine Problems Diabetes Mellitus Type 1: No Diabetes Mellitus Type 2: No Other Problems Shingles: No Blood Transfusions: No Blood Transfusion Reaction: No Anesthesia Reactions: No Chemotherapy: Yes (2009) Radiation Therapy: Yes (2009) Chicken Pox: Yes Measles: Yes Mumps: Yes Cancer: Yes Subjective Visit Visit for: follow up visit, post op #2 and knee Immunization / Flu Flu Vaccine in the Last 12 Months: No Flu Vaccine Exclusion Criteria: No Exclusion Criteria and Already Received History of Present Illness Chief complaint: 6 WEEK FU LEFT TKA Date of injury / onset of symptoms: 10/2023 Shweta is a pleasant 70-year-old female with bilateral knee pain and bilateral knee arthritis. She is status post left total knee replacement and is doing well Personal History Red flag PMH: none BMI Counceling provided: Yes Pain Pain level (0-10): 0 Pain duration: ON AND OFF Pain location: anterior Pain quality: dull and aching Pain timing: night, increases with activity and stairs Associated signs & symptoms: weakness, stiffness and none Ambulatory data Ambulatory device: cane Treatments Number of previous injections: 0 Improvement with previous injections: No Number of Physical Therapy sessions: 0 Improvement with PT: No Improvement with NSAIDS: no Review of Systems Review of Systems: All systems negative unless otherwise noted in HPI.
[2025-07-12 08:48] VITALS: BP 142/84; PULSE 62; RESP 18; TEMP 35.9; O2SAT 98; BMI 33.0
--- NOTE | 2025-07-12 09:21 | XR_ITS ---
Examination: Bilateral AP knees single view Left knee PA lateral axial 3 views TECHNIQUE: AP knees standing single view Left knee PA standing flexion, standing lateral, axial left knee 3 views total 4 views Date and time: July 12, 2025 0935 hours INDICATIONS: Status post left knee replacement 6 weeks ago. FINDINGS: Prominent osteopenia. Advanced narrowing medial joint space right knee Significant osteoarthritis lateral joint space right knee Total left knee arthroplasty. Satisfactory alignment No fracture. Healed fracture proximal fibular shaft IMPRESSION: Total left knee arthroplasty with satisfactory alignment
== END 2025-07-12 09:22 | disposition home or self-care (01) ==
PROVIDERS: PCP Family Medicine; Referring Provider Family Medicine; Supervising Provider Orthopaedic Surgery Adult Reconstructive Orthopaedic Surgery; Visit Provider Orthopaedic Surgery Adult Reconstructive Orthopaedic Surgery
DX: M17.0 Bilateral primary osteoarthritis of knee (principal); M25.562 Pain in left knee; M25.561 Pain in right knee; Z96.652 Presence of left artificial knee joint; E66.9 Obesity, unspecified; Z71.3 Dietary counseling and surveillance; Z68.33 Body mass index [BMI] 33.0-33.9, adult
CPT/HCPCS: 73564; 99213; G0463

== ENCOUNTER 2025-09-11 12:51 | Outpatient (AMB) | payer MEDICARE, MEDICAID, SELFPAY ==
[2025-09-11 13:03] VITALS: BP 151/88; PULSE 85; RESP 18; TEMP 36.2; O2SAT 97; BMI 33.9
--- NOTE | 2025-09-11 13:03 | PD.ORTHCLVIS ---
Vital signs 09/11/25 13:03 Height 1.45 m Height Method Measured Weight 71.327 kg Weight Measurement Method Standing Scale BMI 33.9 BP 151/88 H Blood Pressure Source Automatic Cuff Blood Pressure Location Left Upper Arm Position Sitting Respiration 18 Pulse 85 Pulse Source Monitor Temp 97.1 F Temp Source Temporal Artery Scan Pulse Oximetry (%) 97 Oxygen Delivery Method Room Air Med/Allergies Allergies & Medications Allergies No Known Allergies Allergy (Verified 09/11/25 13:04) Medication Reconciliation acetaminophen 500 mg tablet (Acetaminophen Extra Strength) 1,000 mg (2 x 500 mg) PO Q6H PRN pain #90 tabs 05/31/25 [Rx Confirmed 09/11/25] aspirin 81 mg tablet,delayed release 81 mg PO BID #60 tabs 05/31/25 [Rx Confirmed 09/11/25] doxycycline hyclate 100 mg tablet 100 mg PO BID #14 tabs 05/31/25 [Rx Confirmed 09/11/25] gabapentin 300 mg capsule 300 mg PO .qhs #30 caps 05/31/25 [Rx Confirmed 09/11/25] sennosides 8.6 mg-docusate sodium 50 mg tablet (Senna-S) 1 tab-cap PO QDAY #30 tabs 05/31/25 [Rx Confirmed 09/11/25] oxycodone 5 mg tablet 5 mg PO Q6H PRN pain #28 tabs 06/11/25 [Rx Confirmed 09/11/25] meloxicam 7.5 mg tablet 7.5 mg PO QDAY #45 tabs 07/12/25 [Rx Confirmed 09/11/25] Exam Exam Patient is in no acute distress and is cooperative with the examination today. Breathing is nonlabored. In no respiratory distress. Bilateral extremities were evaluated and demonstrates sensation intact to light touch. Palpable pedal pulses are present. No significant edema is present. Bilateral hips were examined. The patient has no pain with log roll of the hips. Internal rotation to 30 degrees and external rotation to 30 degrees is painless. Negative FADIR. Left knee incision is clean dry and intact. Range of motion is 0 to 90 degrees Assessment and Plan Problem List (1) Degenerative arthritis of knee, bilateral: Status: Acute Plan: Patient is a 70-year-old female With bilateral knee pain and bilateral knee arthritis. She is doing well status post left total knee replacement. Will see her back in 12 weeks for routine follow-up. We will see her back in 3 months for routine follow-up. She would like a right knee injection as well Recommend knee cortisone injection as patient would like to proceed with conservative treatment at this time. The risks and benefits of the procedure were reviewed with the patient and patient gave verbal consent to continue with the procedure. Procedure: performed by Dr. Diez Using sterile technique the Right knee was thoroughly prepped with alcohol, and approximately 1 cc of Depo-Medrol 80mg/mL and 4 cc of 0.2% ropivacaine was injected without resistance into the medial tibial femoral joint space. The patient tolerated the procedure. Advanced Care Planning Discussion Advance care planning discussed with:: patient and child Office Procedures GNS Level of Care Nursing/Assessment Patient Status: Established Patient Nursing Assessment/Reassesment: Medication Reconciliation, Update PMH in EMR and Vital Signs Coordination of Care: Complex Care and Chronic Disease 1-5, Education Complex Pt/Fam, Consent,records obtained, informed consent, Results/Orders obtained and Staff clarify orders Established Patient Charge Established Patient Point Assignment: 95 Established Patient Point Charge: EP Level 3 (80-115) Surgical Proc/IM SQ injection Minor Surgical Procedure: Yes (KNEE INJECTION ) Medication Given Medication Given Medication Given: Yes Documented Dose Given: 1 Route: Infiitration Medication Given Medication Given Medication Given: Yes Documented Dose Given: 4 Route: Infiitration Office Meds methylprednisolone acetate 80 mg/mL suspension for injection Performing Provider: James Diez MD Performing Location: [facility] Administered by: James Diez MD on 09/11/25 13:15 Dose Route Admin Location Dispensed Lot Number Expiration Date Package [facility] [employer] 80 mg intra-articular KNEE 1 mL [id number] 05/24/27 [address]-7 [id number] [employer] ropivacaine (PF) 2 mg/mL (0.2 %) injection solution Performing Provider: James Diez MD Performing Location: [facility] Administered by: James Diez MD on 09/11/25 13:15 Dose Route Admin Location Dispensed Lot Number Expiration Date Package [facility] [place] [employer] 20 mL Infiltration KNEE 20 mL [id number] 11/24/27 37960-265-32 [id number] REPLACED BY [facility] Intake Visit Data Collection New Patient or Established: Established Patient (seen at [facility] within 3 years) Reason for Visit:: LEFT KNEE XRAY F/U Seen by Clinical Staff ONLY (RN/MA): No [employer] Required: Yes PCP or OBGYN visit in last 3 months: Yes Hx Now: No Do You Feel Safe at Home: Yes Authorities Contacted: N/A Questionairres Past Medical History Past Medical History Have you ever been diagnosed with any of the following: Neurological Problems Seizures: No Cardiology Problems Congestive Heart Failure: No Varicose Veins: Yes Respiratory Problems Chronic Obstructive Pulmonary Disease (COPD): No Pneumonia: Yes Smoking: No Smoking Exposure: No Stomache/Intestinal Problems Hepatitis: No Obesity: Yes Genital/Urinary Problems Renal Disease: No Reproductive Problems Breast Cancer: Yes (Left) Previous Pregnancies: Yes Musculoskeletal Problems Arthritis: Yes Endocrine Problems Diabetes Mellitus Type 1: No Diabetes Mellitus Type 2: No Other Problems Shingles: No Blood Transfusions: No Blood Transfusion Reaction: No Anesthesia Reactions: No Chemotherapy: Yes (2009) Radiation Therapy: Yes (2009) Chicken Pox: Yes Measles: Yes Mumps: Yes Cancer: Yes Subjective Visit Visit for: follow up visit and knee Immunization / Flu Flu Vaccine in the Last 12 Months: No Flu Vaccine Exclusion Criteria: No Exclusion Criteria and Already Received History of Present Illness Chief complaint: LEFT KNEE XRAY F/U Date of injury / onset of symptoms: 10/2023 Shweta is a pleasant 70-year-old female with bilateral knee pain and bilateral knee arthritis. She is status post left total knee replacement and is doing well Personal History Red flag PMH: none BMI Counceling provided: Yes Pain Pain level (0-10): 0 Pain duration: ON AND OFF Pain location: anterior Pain quality: dull and aching Pain timing: night, increases with activity and stairs Associated signs & symptoms: weakness, stiffness and none Ambulatory data Ambulatory device: cane Treatments Number of previous injections: 0 Improvement with previous injections: No Number of Physical Therapy sessions: 0 Improvement with PT: No Improvement with NSAIDS: no Review of Systems Review of Systems: All systems negative unless otherwise noted in HPI.
== END 2025-09-11 13:13 | disposition home or self-care (01) ==
LOC: HODSRG 12:51
PROVIDERS: PCP Family Medicine; Referring Provider Family Medicine; Supervising Provider Orthopaedic Surgery Adult Reconstructive Orthopaedic Surgery; Visit Provider Orthopaedic Surgery Adult Reconstructive Orthopaedic Surgery
DX: M25.561 Pain in right knee (principal); M25.562 Pain in left knee; M17.11 Unilateral primary osteoarthritis, right knee; Z96.652 Presence of left artificial knee joint; E66.9 Obesity, unspecified; Z68.33 Body mass index [BMI] 33.0-33.9, adult
CPT/HCPCS: 20610; 99213; J1010; J2795; G0463